=== PATIENT | male | born 1955 | race Caucasian/White ===

== ENCOUNTER → 2023-05-12 17:28 | Outpatient (REF) | payer BC, SELFPAY | LOC: MRI 3T 17:28 | PROVIDERS: ATTENDING PHYSICIAN Specialist; FAMILY PHYSICIAN Family Medicine | DX: C61 Malignant neoplasm of prostate (principal); R97.20 Elevated prostate specific antigen [PSA] | CPT/HCPCS: 72197; A9575 ==

== ENCOUNTER 2025-01-16 06:22 | Day surgery (SDC) | payer BC, SELFPAY ==
[2025-01-14 08:49] LABS: Hematocrit 40.1 % (39.0-52.0); Hemoglobin 13.8 g/dL (13.0-18.0); Mean Corp Hgb Conc. 34.4 g/dL (33.0-37.0); Mean Corpuscular Volume 92.4 fL (80.0-94.0); Platelet Count 381 10^3/uL (130-400); Red Cell Dist. Width 12.9 % (11.5-14.5)
[2025-01-14 09:19] LABS: Blood Urea Nitrogen 23 mg/dl (9-20); Calcium 9.3 mg/dl (8.4-10.2); Carbon Dioxide 32 mmol/L (22-30); Chloride 100 mmol/L (98-107); Glucose 95 mg/dl (70-99); Potassium 3.7 mmol/L (3.5-5.1); Sodium 137 mmol/L (135-145); eGFR > 60.00
[2025-01-14 14:11] VITALS: BMI 26.6
[2025-01-16] VITALS (7 sets, daily range): BP systolic 111–163; BP diastolic 67–108; BMI 26.6
[2025-01-16] MEDS: NORMOSOL-R/PLASMALYTE-A 1000 IV (08:00)
== END 2025-01-16 10:40 | disposition home or self-care (01) ==
LOC: SDS 06:22
PROVIDERS: ATTENDING PHYSICIAN Specialist; FAMILY PHYSICIAN Family Medicine
DX: C61 Malignant neoplasm of prostate (principal); K62.4 Stenosis of anus and rectum; R97.20 Elevated prostate specific antigen [PSA]
CPT/HCPCS: 55700; 76998; 80048; 85027; 88305; 93005; J1580